=== PATIENT | male | born 1985 | race Caucasian/White ===

== ENCOUNTER → 2017-01-19 | Outpatient (CLI) | payer OTHER ==
--- NOTE | 2017-01-19 09:11 | DIAGNOSTIC IMAGING REPORT ---
TESTICULAR ULTRASOUND CLINICAL HISTORY: RT TESTICULAR PAIN COMPARISON STUDY: No previous studies for comparison. FINDINGS: The right testis measures 49 x 36 x 29 mm. The left testis measures 50 x 31 x 29 mm. No intratesticular masses are visualized. There is no evidence of testicular torsion. There is a 2 mm right-sided scrotolith. There are minimal bilateral hydroceles. There is a mildly prominent right inguinal lymph node which appears architecturally unremarkable. IMPRESSION: 1. No evidence of intratesticular mass 2. No evidence of testicular torsion 3. 2 mm right-sided scrotolith Electronically signed by: Jose Dahl M.D. 01/19/2017 9:10 AM Dictated Date/Time: 01/19/2017 9:07 AM
== END | disposition home or self-care (01) ==
LOC: C.ULTR 08:34
PROVIDERS: ATTEND Family Medicine
DX: N50.819 Testicular pain, unspecified (principal)